=== PATIENT | male | born 1990 | race Caucasian/White ===

== ENCOUNTER 2025-03-23 17:03 | Emergency (ER) | payer MEDICARE, SELFPAY ==
[2025-03-23 17:18] VITALS: BP 124/80; BP 144/88; PULSE 79; RESP 18; TEMP 37.2; O2SAT 96; O2SAT 98; BMI 30.7
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
[2025-03-23] MEDS: LORazepam 1 MG TABLET 2 MG PO (18:24)
[2025-03-23 18:51] VITALS: BP 105/63; PULSE 67; RESP 16; O2SAT 98
[2025-03-23 20:18] VITALS: BP 110/69; PULSE 81; RESP 16; TEMP 37.1; O2SAT 98
--- NOTE | 2025-03-23 20:19 | PC.NURSE ---
This RN attempted to call nurse to nurse report to Lisa Kerr x3, no answer to phone calls.
== END 2025-03-23 20:20 | disposition home or self-care (01) ==
PROVIDERS: Emergency Provider Internal Medicine
DX: S00.93XA Contusion of unspecified part of head, initial encounter (principal); Y04.2XXA Assault by strike against or bumped into by another person, initial encounter; M54.2 Cervicalgia; Y93.89 Activity, other specified; Y92.199 Unspecified place in other specified residential institution as the place of occurrence of the external cause; Y99.9 Unspecified external cause status
CPT/HCPCS: 99283; 99284